=== PATIENT | male | born 1945 | race Caucasian/White ===

== ENCOUNTER 2020-11-26 20:15 | Emergency (ER) | payer OTHER ==
[~2020-11-26] VITALS: Ht 167.6 cm; Wt 68.0 kg
[2020-11-26 20:15] VITALS: BP 130/90
--- NOTE | 2020-11-26 21:31 | NUR ---
CALLED [facility] [phone] AND SPOKE WITH ANA. ETA FOR [place] IS 20 MINUTES
== END 2020-11-26 21:00 | disposition home or self-care (01) ==
LOC: ER 20:18
DX: S61.213A Laceration without foreign body of left middle finger without damage to nail, initial encounter (principal); W26.8XXA Contact with other sharp object(s), not elsewhere classified, initial encounter; Y93.89 Activity, other specified; Y92.89 Other specified places as the place of occurrence of the external cause; Y99.8 Other external cause status

== ENCOUNTER 2025-03-11 07:12 | Emergency (ER) | payer OTHER ==
[~2025-03-11] VITALS: Ht 175.3 cm; Wt 64.4 kg
[2025-03-11 07:18] VITALS: TEMP 98.5
[2025-03-11 07:54] LABS: PLATELET COUNT (AUTO) 163 K/uL (150-450); RED BLOOD CELL COUNT(AUTO) 3.90 MIL/uL (4.5-6.0); RED CELL DISTRIBUTION WIDTH 13.5 % (11.5-15.0); WHITE BLOOD COUNT (AUTO) 7.2 K/uL (4.3-11.0)
[2025-03-11 07:56] LABS: CALCIUM, SERUM 8.6 mg/dL (8.5-10.1); CREATININE 1.6 mg/dL (0.6-1.3); SODIUM SERUM 130 mmol/L (136-145); UREA NITROGEN, BLOOD 32 mg/dL (7-18)
[2025-03-11 07:58] LABS: INR 1.14 (0.91-1.10)
[2025-03-11 08:07] LABS: ASPARTATE AMINOTRANSFERASE 35 U/L (15-37); TOTAL PROTEIN, SERUM 7.6 g/dL (6.4-8.2)
[2025-03-11] MEDS: IV NS 0.9% 1,000 ML BAG IV ONE (08:26)
[2025-03-11 12:37] VITALS: BP 131/83; O2SAT 99
== END 2025-03-11 12:53 | disposition short-term general hospital (02) ==
LOC: ER 07:28
DX: K92.2 Gastrointestinal hemorrhage, unspecified (principal); E86.0 Dehydration; K56.7 Ileus, unspecified; Z85.51 Personal history of malignant neoplasm of bladder
CPT/HCPCS: 99285; 74176; 96360; 71045; 93005; 85025; 80048; 80076; 36415; 84484 ×2; 85730; 86850; J7030